=== PATIENT | female | born 1990 | race Caucasian/White ===

== ENCOUNTER → 2021-04-28 | Outpatient (CLI) | payer BC ==
[2021-04-28 16:28] LABS: CLARITY URINE CLEAR (CLEAR); COLOR URINE YELLOW (YELLOW); KETONES URINE TRACE (NEGATIVE); LEUKOCYTE ESTERASE URINE NEGATIVE (NEGATIVE); NITRITE URINE NEGATIVE (NEGATIVE); OCCULT BLOOD URINE NEGATIVE (NEGATIVE); PH URINE 5.5 (4.5-8.0); PROTEIN URINE NEGATIVE (NEGATIVE); SPECIFIC GRAVITY URINE 1.038 (1.005-1.030); UROBILINOGEN URINE 0.2 E.U./dL (0.2-1.0)
[2021-04-28 16:42] LABS: BASOPHILS % 0.5 % (0.0-2.0); EOSINOPHILS % 1.5 % (0.0-5.0); HEMATOCRIT. 40.6 % (36.0-48.0); LYMPHOCYTES % 25.5 % (20.0-50.0); MEAN CORPUSCULAR VOLUME 87.3 fL (81.0-99.0); MEAN PLATELET VOLUME 9.5 fl (7.4-10.4); MONOCYTES % 6.1 % (2.0-8.0); NEUTROPHILS % 66.4 % (40.0-76.0); PLATELET 225 x1000/uL (130-400); RED BLOOD CELL COUNT 4.65 mill/uL (4.2-5.4)
[2021-04-28 16:48] LABS: CHLORIDE 98 mEq/L (98-107)
[2021-04-28 16:55] LABS: LDL CHOLESTEROL 82 mg/dL (5-100)
[2021-04-28 16:56] LABS: HDL CHOLESTEROL 27 mg/dL (40-59)
[2021-04-28 17:40] LABS: VITAMIN B12 SERUM 1535 pg/mL (211-911)
[2021-04-30 05:08] LABS: THYROID PEROXIDASE ANTIBODY < 8 IU/mL (0-34); VITAMIN D 25-OH 12.8 ng/mL (30.0-100.0)
== END | disposition home or self-care (01) ==
LOC: LAB 15:49
PROVIDERS: ATTEND Family Medicine
DX: Z00.00 Encounter for general adult medical examination without abnormal findings (principal)
CPT/HCPCS: 36415; 80053; 80061; 81003; 82306; 82607; 83036; 84436; 84443; 84481; 85025; 86376

== ENCOUNTER → 2021-09-03 | Outpatient (CLI) | payer BC ==
[2021-09-03 06:49] LABS: BASOPHILS % 0.4 % (0.0-2.0); EOSINOPHILS % 1.8 % (0.0-5.0); HEMATOCRIT. 40.1 % (36.0-48.0); HEMOGLOBIN. 13.6 g/dL (12.0-16.0); LYMPHOCYTES % 22.7 % (20.0-50.0); MEAN CORPUSCULAR HEMOGLOBIN 29.2 pg (28.0-32.0); MEAN CORPUSCULAR VOLUME 86.6 fL (81.0-99.0); MEAN PLATELET VOLUME 9.2 fl (7.4-10.4); MONOCYTES % 7.9 % (2.0-8.0); NEUTROPHILS % 67.2 % (40.0-76.0); PLATELET 237 x1000/uL (130-400); RED BLOOD CELL COUNT 4.64 mill/uL (4.2-5.4)
[2021-09-03 06:59] LABS: CHLORIDE 105 mEq/L (98-107)
[2021-09-03 07:07] LABS: LDL CHOLESTEROL 71 mg/dL (5-100)
[2021-09-03 07:08] LABS: C REACTIVE PROTEIN QUANT 2.8 mg/L (0.0-3.0); HDL CHOLESTEROL 34 mg/dL (40-59)
[2021-09-03 07:09] LABS: T4 FREE 0.97 ng/dL (0.76-1.46)
[2021-09-03 07:24] LABS: CORTISOL 22.1 ucg/dL
[2021-09-04 07:08] LABS: *CREATININE RANDOM URINE 66.7 mg/dL (Not Estab.); MICROALBUMIN RANDOM URINE <3.0 ug/mL (Not Estab.)
[2021-09-04 09:07] LABS: FOLICLE STIMULATING HORMONE 2.2 mIU/mL (.); VITAMIN D 25-OH 21.4 ng/mL (30.0-100.0)
== END | disposition home or self-care (01) ==
LOC: LAB 06:06
PROVIDERS: ATTEND Internal Medicine Endocrinology, Diabetes & Metabolism
DX: E11.69 Type 2 diabetes mellitus with other specified complication (principal); E55.9 Vitamin D deficiency, unspecified; L65.9 Nonscarring hair loss, unspecified
CPT/HCPCS: 36415; 80053; 80061; 82043; 82306; 82533; 82570; 82607; 82627; 82670; 83001; 84402; 84403; 84439; 84443; 85025; 86140

== ENCOUNTER 2022-06-27 18:57 | Emergency (ER) | payer BC ==
[~2022-06-27] VITALS: Ht 162.6 cm; Wt 91.0 kg
[2022-06-27 19:02] VITALS: BP 148/91
== END 2022-06-27 21:00 | disposition left against medical advice (07) ==
LOC: ER 18:57
DX: Z53.21 Procedure and treatment not carried out due to patient leaving prior to being seen by health care provider (principal)
CPT/HCPCS: 82962